=== PATIENT | female | born 1950 | race Caucasian/White ===

== ENCOUNTER 2020-02-15 10:25 | Outpatient (CLI) | payer MEDICARE, SELFPAY ==
--- NOTE | ~2020-02-15 | MM_ITS ---
EXAMINATION: MM screening [facility] BI w pamela HISTORY: Screening mammogram TECHNIQUE: Craniocaudal and mediolateral oblique 3-D tomosynthesis images were obtained and synthetic 2-D images were generated. CAD analysis was submitted and interpreted. COMPARISON: 02/10/2019, 01/26/2018, 01/04/2017 bilateral digital screening mammogram examinations BREAST PARENCHYMAL COMPOSITION: There are scattered areas of fibroglandular density. FINDINGS: There is no evidence of suspicious mass, calcification, or architectural distortion to sugg est malignancy in either breast. There has been no suspicious interval change. IMPRESSION: 1. No mammographic evidence of malignancy. 2. Recommend routine screening mammography in one year. BI-RADS Category 1: Negative Reviewed, dictated and finalized at location A.
== END 2020-02-15 10:26 | disposition home or self-care (01) ==
PROVIDERS: PCP Family Medicine
DX: Z12.31 Encounter for screening mammogram for malignant neoplasm of breast (principal)
CPT/HCPCS: 77063; 77067

== ENCOUNTER 2021-03-24 08:26 | Outpatient (CLI) | payer MEDICARE, SELFPAY ==
--- NOTE | ~2021-03-24 | MM_ITS ---
EXAMINATION: MM screening [facility] BI w pamela HISTORY: Screening mammogram TECHNIQUE: Craniocaudal and mediolateral oblique 3-D tomosynthesis images were obtained and synthetic 2-D images were generated. CAD analysis was submitted and interpreted. COMPARISON: No prior mammogram is available for comparison at this institution. BREAST PARENCHYMAL COMPOSITION: There are scattered areas of fibroglandular density. FINDINGS: There is no evidence of suspicious mass, calcification, or architectural distortion to sugg est malignancy in either breast. There has been no suspicious interval change. IMPRESSION: 1. No mammographic evidence of malignancy. 2. Recommend routine screening mammography in one year. BI-RADS Category 1: Negative Reviewed, dictated and finalized at location A. OPHYSICIST
== END 2021-03-24 08:27 | disposition home or self-care (01) ==
LOC: CHSIMG 08:27
PROVIDERS: PCP Family Medicine; Visit Provider Obstetrics & Gynecology
DX: Z12.31 Encounter for screening mammogram for malignant neoplasm of breast (principal)
CPT/HCPCS: 77063; 77067

== ENCOUNTER 2022-03-27 08:30 | Outpatient (CLI) | payer MEDICARE, SELFPAY ==
--- NOTE | ~2022-03-27 | MM_ITS ---
EXAMINATION: MM screening [facility] BI w pamela HISTORY: Screening mammogram TECHNIQUE: Craniocaudal and mediolateral oblique 3-D tomosynthesis images were obtained and synthetic 2-D images were generated. CAD analysis was submitted and interpreted. COMPARISON: 03/24/2021, 02/15/2020, 02/10/2019 BREAST PARENCHYMAL COMPOSITION: There are scattered areas of fibroglandular density. FINDINGS: No suspicious mass, calcification, or architectural distortion are identified in either suzi ast to suggest malignancy. There has been no suspicious interval change. IMPRESSION: 1. No mammographic evidence of malignancy. 2. Recommend routine screening mammography in one year. BI-RADS Category 1: Negative Reviewed, dictated and finalized at location A. YSIS OR RESEARCH SAFETY INSPECTOR
== END 2022-03-27 08:31 | disposition home or self-care (01) ==
LOC: CHSIMG 08:31
PROVIDERS: PCP Family Medicine; Visit Provider Family Medicine
DX: Z12.31 Encounter for screening mammogram for malignant neoplasm of breast (principal)
CPT/HCPCS: 77063; 77067

== ENCOUNTER 2023-04-22 13:31 | Outpatient (CLI) | payer MEDICARE, SELFPAY ==
--- NOTE | ~2023-04-22 | MM_ITS ---
EXAMINATION: MM screening [facility] BI w pamela HISTORY: Screening mammogram TECHNIQUE: Craniocaudal and mediolateral oblique 3-D tomosynthesis images were obtained and synthetic 2-D images were generated. CAD analysis was submitted and interpreted. COMPARISON: 03/27/2022, , 02/15/2020 bilateral screening mammogram examinations BREAST PARENCHYMAL COMPOSITION: There are scattered areas of fibroglandular density. FINDINGS: There is no evidence of suspicious mass, calcification, or architectural distortion to sugg est malignancy in either breast. There has been no suspicious interval change. IMPRESSION: 1. No mammographic evidence of malignancy. 2. Recommend routine screening mammography in one year. BI-RADS Category 1: Negative Reviewed, dictated and finalized at location A. MATIC WASHER MECHANIC
== END 2023-04-22 13:32 | disposition home or self-care (01) ==
PROVIDERS: PCP Family Medicine; Visit Provider Obstetrics & Gynecology
DX: Z12.31 Encounter for screening mammogram for malignant neoplasm of breast (principal)
CPT/HCPCS: 77063; 77067

== ENCOUNTER 2024-09-07 12:21 | Outpatient (CLI) | payer MEDICARE, SELFPAY ==
--- NOTE | ~2024-09-07 | MM_ITS ---
EXAMINATION: MM screening [facility] BI w pamela HISTORY: Screening TECHNIQUE: Craniocaudal and mediolateral oblique 3-D tomosynthesis images were obtained and synthetic 2-D images were generated. CAD analysis was submitted and interpreted. COMPARISON: Comparison to multiple prior studies sequentially, with oldest reviewed study dated 06/2017. BREAST PARENCHYMAL COMPOSITION: Not dense: There are scattered areas of fibroglandular density. FINDINGS: There is no evidence of suspicious mass, calcification, or architectural distortion to sugg est malignancy in either breast. There has been no suspicious interval change. IMPRESSION: 1. No mammographic evidence of malignancy. 2. Recommend routine screening mammography in one year. BI-RADS Category 1: Negative Reviewed, dictated and finalized at location A.
--- OUTSIDE RECORDS SUMMARY | 2024-09-07 12:26 | XMS_ITS | Encounter Summary ---
Author Organization [facility] Address [address] [place] [address] Care Team Providers Care Aircraft Maintenance Technician Name Role Phone Kendall Nino MD Primary Care Provider Encounter Details Date Type Department Care Team (Late st Contact Info) Description 07/27/2024 Scan [facility] Information Services [address] [place] [address] Scanned, Documents Social History Tobacco Use Types Packs/Day Years Used Date Smoking Tobacco: Never Passive Smoke Exposure: Never Smokeless Tobacco: Never Comments Unknown Sex and Gender Information Value Date Recorded Sex Assigned at Female 12/22/2023 7:55 AM CDT Legal Sex Female 11:22 PM SUPPORT ENGINEER Gender Identity Female 12/22/2023 7:55 AM CDT Sexual Orientation Straight 12/22/2023 7: 55 AM CDT documented as of this encounter Plan of Treatment Upcoming Encounters Date Type Department Care Team (Latest Contact Info) Description 09/13/2024 1:44 PM CDT Hospital Encounter [place] [address] Priscilla Osorio MD [address] [place], [place] [id number] 09/13/2024 1:44 PM CDT - 09/13/2024 2:12 PM CDT Surgery [place] [address] Priscilla Osorio MD [address] [place] [address] extraction cataract RIGHT eye with lens implant Scheduled Procedures Name Priority Associated Diagnoses Date/Ti me CATARACT REMOVAL WITH IOL IMPLANT h25.9 09/13/2024 1:44 PM CDT documented as of this encounter Visit Diagnoses Not on filedocumented in this encounter Care Teams Aircraft Maintenance Technician Relationship Specialty Start Date End Date Kendall Nino MD [address] [place] [address] PCP - General FAMILY PRACTICE 11/30/23 documented as of this encounter
--- OUTSIDE RECORDS SUMMARY | 2024-09-07 12:26 | XMS_ITS | Clinical Summary ---
Author Organization [facility] Address [address] [place] [address] Care Team Providers Care Legal Biller Name Role Phone Kendall Samano MD Primary Care Provider [phone] Allergies No known active allergies Medications valACYclovir (VALTREX) 500 MG tablet Active metFORMIN ER (GLUCOPHAGE-XR) 500 MG 24 hr tablet 11/23/2023 Active levothyroxine (SYNTHROID) 75 MCG tablet 12/10/2023 Active Fexofenadine-Pse udoephedrine (GAURI-D 24 HOUR OR) Active famotidine (PEPCID) 10 MG tablet Active Cholecalciferol (VITAMIN D3) 1000 units Cap Activ e albuterol (VENTOLIN) 2 MG/5ML syrup Take by mouth as needed. Active Encounters Date Type Department Care Team Description 09/07/2024 Travel 07/27/2024 Scan [facility] Information Services [address] [place] [address] [place] [address] Scanned, Documents from Last 3 Months Social History Tobacco Use Types Packs/Day Years Used Date Smoking Tobacco: Never Passive Smoke Exposure: Never Smokeless Tobacco: Never Tobacco Cessation:Counseling Given: No Alcohol Use Standard Drinks/Week Comments Not Currently 0 (1 standard drink = 0.6 oz pur e alcohol) Comments No Sex and Gender Information Value Date Recorded Sex Assigned at Female 12/22/2023 7:55 AM CDT Legal Sex Female 11:22 PM NUTRITION DIRECTOR Gender Identity Female 12/22/2023 7:55 AM CDT Sexual Orientation Straight 12/22/2023 7: 55 AM CDT Last Filed Vital Signs Vital Sign Reading Time Taken Comments Blood Pressure - - Pulse - - Temperature - - Respiratory Rate - - Oxygen Saturation - - Inhaled Oxygen Concentration - - Weight 78.5 kg (173 lb) 09/07/2024 10:04 AM CDT Height 168.9 cm (5' 6.5 ) 09/07/2024 10:04 AM CD T Body Mass Index 27.5 09/07/2024 10:04 AM CDT Plan of Treatment Upcoming Encounters Date Type Department Care Team (Latest Contact Info) Description 09/13/2024 1:44 PM CDT Hospital Encounter [facility] [place] [address] [place], [place] [address] [address] Priscilla Osorio MD [address] [place] [address] 09/13/2024 1:44 PM CDT - 09/13/2024 2:12 PM CDT Surgery [facility] [place] [facility] [place] [address] Priscilla Osorio MD [address] [place], [place] [address] extraction cataract RIGHT eye with lens implant Scheduled Procedures Name Priority Associated Diagnoses Date/Ti me CATARACT REMOVAL WITH IOL IMPLANT h25.9 09/13/2024 1:44 PM CDT Health Maintenance Due Date Last Done Comments Hepatitis C 1968 DTaP, Tdap and Td Vaccines ( 1 - Tdap) 1969 Annual Medicare Wellness Visit 2013 Zoster Vaccines (2 of 3) 03/01/2014 01/04/2014 Pneumococcal Vaccine: 50+ Ye ars (2 of 2 - PPSV23) 05/11/2014 05/11/2013 RSV Immunization or 60+ Years (1 - 1-dose 75+ series) 2023 COVID-19 Vaccine ( - 2023-2 5 season) 2023 Colorectal Cancer Screening Colonoscopy (10 Years) Discontinued 12/21/2017 Dexa Scan (General) Completed 12/02/2021 Meningococcal B Vaccine Aged Out No l onger eligible based on patient's age to complete this topic Meningococcal Vaccine Aged Out No [place] eligible based on patient's age to complete this topic RSV Immunizations Under 20 Months Aged Out No longer eligible based on patient's age to complete this topic Goals Goal Patient Goal Type Associated Problems Recent Progress Patient-Stated? Author Autogenerat ed Goal Care Plan Autogenerated Problem No Elizabet Corey RN Procedures Procedure Name Priority Date/Time Associated Diagnosis Comments BONE DENSITY/DEXA Routine 12/02/2021 11: 31 AM CDT Osteoporosis COLONOSCOPY GENERIC (SCAN ORDER) Routine 12/21/2017 12:00 AM CDT from Last 3 Months or Most Recently Relevant to Health Maintenance Results * BONE DENSITY/DEXA (12/02/2021 11:31 AM CDT) Anatomical Region Laterality Modality Bone Bone Density 12/02/2021 2:12 PM CDT Impressions 12/02/2021 2:21 PM CDT Impression: BMD measured at AP lumbar spine, both total hips and both femoral necks at WHO category level of normal. Ordered By: KENDALL SAMANO Interpreted By: Ricci Coronado MD, 12/02/2021 2:12 PM Narrative 12/02/2021 2:21 PM CDT Examination: DEXA Bone densitometry EXAM DATE: 12/02/2021 11:31 AM Clinical history: Postmenopausal. Vitamin D use. Prior hysterectomy and history of hormone replacement therapy. Dairy product consumption. Technique: DEXA bone minimal density evaluation was performed in the AP projection over the lumbar spine and over both hips in the AP projection utilizing standard imaging techniques. Assessment: The BMD measured at the AP spine L1-L4 is 0.950 g/cm? with a T-score of -0.9 and a Z-Score of 1.4. Bone density is up to 10% below young normal. This patient is considered normal according to the World Health Organization (WHO) criteria. Fracture risk is low. The BMD measured at the femur total left is 0.911 g/cm? with a T-score of -0.3 and a Z-Score of 1.4. Bone density is up to 10% below young normal. This patient is considered normal according to the World Health Organization (WHO) criteria. Fracture risk is low. The BMD measured at the left femoral neck is 0.735 g/sq cm resulting in a T score of -1.0 and a Z score of 1.0, values at the WHO category level of normal. The BMD measured at the femur total right is 0.944 g/cm? with a T-score of 0.0 and aZ-Score of 1.7. Bone density is up to 10% below young normal. This patient is considered normal according to the World Health Organization (WHO) criteria. Fracture risk is low. The BMD measured at the right femoral neck is 1.017 g/sq cm resulting in a T score of 1.5 and a Z score of 3.5, values at the WHO category level of normal. FRAX results: 10 year probability of major osteoporotic fracture 9.3% and of hip fracture 1.2%. Recommendations: All patients should ensure an adequate intake of dietary calcium and vitamin D. The NOF recommend adults under the age of 50 need 1000 mg of calcium and 400-800 IU of vitamin D daily. Effective therapy for the prevention and treatment of osteoporosis include biphosphonates. Follow-up: People with diagnosed cases of osteoporosis or at high risk for fracture should have regular bone mineral density test. For patients eligible for Medicare, routine testing is allowed once every 2 years. Testing frequency can be increased to one year for patients who have rapidly progressing disease, those who are receiving or discontinuing medical therapy to restore bone mass, or have additional risk factors. Based on these results, a followup exam is recommended in no earlier than 2 years. Procedure Note Ricci Coronado MD - 12/02/2021 Examination: DEXA Bone densitometry EXAM DATE: 12/02/2021 11:31 AM Clinical history: Postmenopausal. Vitamin D use. Prior hysterectomy andhistory of hormone replacement therapy. Dairy product consumption. Technique: DEXA bone minimal density evaluation was performed in the APprojection over the lumbar spine and over both hips in the AP projectionutilizing standard imaging techniques. Assessment: The BMD measured at the AP spine L1-L4 is 0.950 g/cm? with a T-score of-0.9 and a Z-Score of 1.4. Bone density is up to 10% below youngnormal. This patient is considered normal according to the World HealthOrganization (WHO) criteria. Fracture risk is low. The BMD measured at the femur total left is 0.911 g/cm? with a T-score of-0.3 and a Z-Score of 1.4. Bone density is up to 10% below youngnormal. This patient is considered normal according to the World HealthOrganization (WHO) criteria. Fracture risk is low. The BMD measured at the left femoral neck is 0.735 g/sq cm resulting in aT score of -1.0 and a Z score of 1.0, values at the WHO category level ofnormal. The BMD measured at the femur total right is 0.944 g/cm? with a T-score of0.0 and aZ-Score of 1.7. Bone density is up to 10% below young normal.This patient is considered normal according to the World HealthOrganization (WHO) criteria. Fracture risk is low. The BMD measured at the right femoral neck is 1.017 g/sq cm resulting in aT score of 1.5 and a Z score of 3.5, values at the WHO category level ofnormal. FRAX results: 10 year probability of major osteoporotic fracture 9.3% andof hip fracture 1.2%. Recommendations: All patients should ensure an adequate intake of dietary calcium andvitamin D. The NOF recommend adults under the age of 50 need 1000 mg ofcalcium and 400-800 IU of vitamin D daily. Effective therapy for theprevention and treatment of osteoporosis include biphosphonates. Follow-up: People with diagnosed cases of osteoporosis or at high risk for fractureshould have regular bone mineral density test. For patients eligible forMedicare, routine testing is allowed once every 2 years. Testing frequencycan be increased to one year for patients who have rapidly progressingdisease, those who are receiving or discontinuing medical therapy torestore bone mass, or have additional risk factors. Based on these results, a followup exam is recommended in no earlier than2 years. Impression: BMD measured at AP lumbar spine, both total hips and both femoral necks atWHO category level of normal. Ordered By: KENDALL SAMANO Interpreted By: Ricci Coronado MD, 12/02/2021 2:12 PM us Kendall Samano MD DEXA Final Resul t * COLONOSCOPY (12/21/2017 12:00 AM CDT) 12/21/2017 us Doc Hoc Scanned SCANNING Final Result [facility] from Last 3 Months or Most Recently Relevant to Health Maintenance Additional Health Concerns Active Problems Noted Date Diagnosed Date Autogenerated Problem 09/04/2024 Insurance [employer] Care Teams Legal Biller Relationship Specialty Start Date End Date Kendall Samano MD [address] [place] [address] PCP - General FAMILY PRACTICE 11/30/23
--- OUTSIDE RECORDS SUMMARY | 2024-09-07 12:26 | XMS_ITS | Encounter Summary ---
Author Organization [facility] Address [address] [place] [address] Care Team Providers Care Derrick Follower Name Role Phone Kendall Nino MD Primary Care Provider [phone] Encounter Details Date Type Department Care Team (Latest Contact Info) Description 09/07/2024 Travel Social History Tobacco Use Types Packs/Day Years Used Date Smoking Tobacco: Never Passive Smoke Exposure: Never Smokeless Tobacco: Never Alcohol Use Standard Drinks/Week Comments Not Currently 0 (1 standard drink = 0.6 oz pur e alcohol) Comments No Sex and Gender Information Value Date Recorded Sex Assigned at Female 12/22/2023 7:55 AM CDT Legal Sex Female 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 Gender Identity Female 12/22/2023 7:55 AM CDT Sexual Orientation Straight 12/22/2023 7: 55 AM CDT documented as of this encounter Plan of Treatment Upcoming Encounters Date Type Department Care Team (Latest Contact Info) Description 09/13/2024 1:44 PM CDT Hospital [place] [address] Priscilla Osorio MD [address] [place], [place] [address] 09/13/2024 1:44 PM CDT - 09/13/2024 2:12 PM CDT [place] [address] Priscilla Osorio MD [address] [place] [address] extraction cataract RIGHT eye with lens implant Scheduled Procedures Name Priority Associated Diagnoses Date/Ti me CATARACT REMOVAL WITH IOL IMPLANT h25.9 09/13/2024 1:44 PM CDT documented as of this encounter Goals Goal Patient Goal Type Associated Problems Recent Progress Patient-Stated? Author Autogenerat ed Goal Care Plan Autogenerated Problem No Elizabet Corey RN documented as of this encounter Visit Diagnoses Not on filedocumented in this encounter Additional Health Concerns Active Problems Noted Date Diagnosed Date Autogenerated Problem 09/04/2024 documented as of this encounter Care Teams Derrick Follower Relationship Specialty Start Date End Date Kendall Nino MD [address] [place] [address] PCP - General FAMILY PRACTICE 11/30/23 documented as of this encounter
== END 2024-09-07 12:22 | disposition home or self-care (01) ==
LOC: CHSIMG 12:24
PROVIDERS: PCP Family Medicine; Visit Provider Obstetrics & Gynecology
DX: Z12.31 Encounter for screening mammogram for malignant neoplasm of breast (principal)
CPT/HCPCS: 77063; 77067